=== PATIENT | female | born 1975 | race African-American/Black ===

== ENCOUNTER 2021-05-18 04:35 | Emergency (ER) | payer BC, OTHER ==
[~2021-05-18] VITALS: Ht 172.7 cm; Wt 155.9 kg
--- NOTE | 2021-05-18 04:38 | PHYS DOC ---
Past History Past Medical History: Hypertension, Other (TARIQ SYED MD) Past Surgical History: Cholecystectomy, , Tonsillectomy (TARIQ SYED MD) Alcohol Use: Occasionally Drug Use: None (TARIQ SYED MD) General Adult HPI: HPI: ".. I had a little bit of a scratchy throat when I went to bed.. but I woke up this morning.. and my face and lips swollen.." Patient is a 46 year old female who presents with above hx and complaints of a llergic reaction. Patient has obvious angioedema of her lips and tongue. Patient does take several meds. Patient does takes lisinopril for blood pressure. No other new foods, meds, or changes or other known exposures. Did recent take some Tessalon Perles for cough complaints. Patient normally follows with Dr. Alegre. (TARIQ SYED MD) Review of Systems: Review of Systems: Constitutional: Denies fever or chills Eyes: Denies change in visual acuity HENT: Complains of swollen lips, nasal congestion and sore throat Respiratory: Complains of some wheezing Cardiovascular: Denies chest pain or edema GI: Denies abdominal pain, nausea, vomiting, bloody stools or diarrhea : Denies dysuria Musculoskeletal: Denies back pain or joint pain Integument: Denies rash Neurologic: Denies headache, focal weakness or sensory changes Endocrine: Denies polyuria or polydipsia Lymphatic: Denies swollen glands Psychiatric: Patient anxious (TARIQ SYED MD) Family History: Family History: Noncontributory to presentation (TARIQ SYED MD) Current Medications: Current Meds: See nursing for home meds (TARIQ SYED MD) Allergies: Allergies: Allergies Coded Allergies Type Severity Reaction Last Updated Verified No Known Drug Allergies 08/06/14 No (TARIQ SYED MD) Physical Exam: PE: Constitutional: Moderate acute distress, non-toxic appearance. [] HENT: Normocephalic, atraumatic, bilateral external ears normal, oropharynx moist, no oral exudates, nose swollen turbinates clear rhinorrhea. Angioedema of lips and tongue Eyes: PERRLA, EOMI, conjunctiva normal, no discharge. Glasses Neck: Normal range of motion, no tenderness, supple, mild stridor. [] Cardiovascular: Tachycardia heart rate regular rhythm, no murmur [] Lungs & Thorax: Bilateral breath sounds equal apex few scattered wheezes on auscultation [] Abdomen: Bowel sounds decreased, soft, no tenderness, no masses, no pulsatile masses. Obese. Old surgery scars. Skin: Warm, dry, no erythema, no rash. [] Back: No tenderness, no CVA tenderness. [] Extremities: No tenderness, no cyanosis, no clubbing, ROM intact, ankle edema. [] Neurologic: Alert and oriented X 3, normal motor function, normal sensory function, no focal deficits noted. [] Psychologic: Affect anxious, judgement normal, mood normal. [] (TARIQ SYED MD) EKG: EKG: [] (TARIQ SYED MD) Radiology/Procedures: Radiology/Procedures: [][place] [address] IMAGING REPORT Signed PATIENT: PRAVEENA RAUSCH MACCOUNT: [id number] : 1975 LOCATION: ER AGE: 46 SEX: F EXAM STATUS: REG ER ORD. PHYSICIAN: TARIQ SYED MD REASON: angio edema , dyspnea PROCEDURE: PORTABLE CHEST 1V EXAM: CHEST 1 VIEW History: Dyspnea COMPARISON: 08/06/2014 TECHNIQUE: Single portable radiograph of the chest FINDINGS: The cardiac silhouette is unremarkable. The lungs are clear bilaterally. The costophrenic sulci are clear and well demarcated. IMPRESSION: No radiographic evidence of an acute cardiopulmonary process. Electronically signed by: Cecil Jarquin MD (05/18/2021 5:49 AM) [id number] DICTATED AND SIGNED BY: CECIL JARQUIN MD DATE: 05/18/21 0545 CC: TARIQ SYED MD; JULIÁN ALEGRE MD ~MTH0 0 (TARIQ SYED MD) Heart Score: C/O Chest Pain: N/A HEART Score for Chest Pain: HEART Score for Chest Pain Response (Comments) Value History Slighlty/Non-Suspicious 0 ECG Nonspecific Repolarizatio 1 Age < 45 0 Risk Factors 1 or 2 Risk Factors 1 Troponin < Normal Limit 0 Total 2 Risk Factors: Risk Factors: DM, Current or recent (<one month) smoker, HTN, HLP, family history of CAD, obesity. Risk Scores: Score 0 - 3: 2.5% MACE over next 6 weeks - Discharge Home Score 4 - 6: 20.3% MACE over next 6 weeks - Admit for Clinical Observation Score 7 - 10: 72.7% MACE over next 6 weeks - Early Invasive Strategies (TARIQ SYED MD) Course & Med Decision Making: Course & Med Decision Making Pertinent Labs and Imaging studies reviewed. (See chart for details) Pt. endorsed to Dr. Pruitt at shift change. Impression: 1. Allergic reaction 2. Angio Edema 3. Diabetes 45480 4. HTN [] (TARIQ SYED MD) Course & Med Decision Making Patient observed in emergency department for 4 hours. Offered admission for observation, patient states she does not feel like she has any airway issues that she has had a scratchy throat for the past 2 to 3 days, will be for her lip swelling this morning. Patient states she has had cold symptoms for like she had laryngitis. Patient and I discussed risks and benefits, return precautions. Patient states she feels comfortable to go home and is instructed to call EMS if she has any worsening symptoms or difficulty swallowing or breathing. (ALVIN PRUITT MD) Dragon Disclaimer: Dragon Disclaimer: This electronic medical record was generated, in whole or in part, using a voice recognition dictation system. (TARIQ SYED MD) Departure Departure: Impression: Primary Impression: Angio-edema Disposition: HOME / SELF CARE / HOMELESS Condition: STABLE Referrals: PCP,NO (PCP) Patient Instructions: Angioedema Dragon Disclaimer This chart was dictated in whole or in part using Voice Recognition software in a busy, high-work load, and often noisy Emergency Department environment. It may contain unintended and wholly unrecognized errors or omissions. (TARIQ SYED MD) Dragon Disclaimer This chart was dictated in whole or in part using Voice Recognition software in a busy, high-work load, and often noisy Emergency Department environment. It may contain unintended and wholly unrecognized errors or omissions. (TARIQ SYED MD) TARIQ SYED MD May 18, 2021 04:38 ALVIN PRUITT MD May 18, 2021 09:10
[2021-05-18] MEDS ORDERED: IPRATRPIUM/ALBUTEROL 0.5/2.5MG 3 ML NEBU. ONE (04:45)
[2021-05-18] MEDS ORDERED: FAMOTIDINE 20 MG/2 ML VIAL IVP ONE (05:00)
[2021-05-18] MEDS ORDERED: IPRATRPIUM/ALBUTEROL 0.5/2.5MG 3 ML NEBU. NEB ONE (05:00)
[2021-05-18] MEDS ORDERED: methylPREDNISolone SOD SUCC PF 125 MG/2 ML VIAL. IV ONE (05:00)
[2021-05-18] MEDS ORDERED: MAGNESIUM HYDROXIDE 2,400 MG/30 ML ORAL.SUSP. PO ONE (05:00)
[2021-05-18] MEDS ORDERED: diphenhydrAMINE 50 MG/ML VIAL IVP ONE (05:00)
[2021-05-18] MEDS ORDERED: IV RINGERS SOLUTION,LACTATED 1,000 ML IV SCH (05:00)
[2021-05-18 05:20] LABS: BASO # 0.1 x10^3/uL (0.0-0.2); BASO % 1 % (0-3); EOS # 0.4 x10^3/uL (0.0-0.7); EOS % 4 % (0-3); HEMOGLOBIN 12.3 g/dL (12.0-15.5); LYMPH # 3.6 x10^3/uL (1.0-4.8); LYMPH % 36 % (24-48); MEAN CORPUSCULAR HEMOGLOBIN 28 pg (25-35); MEAN CORPUSCULAR HGB CONC 33 g/dL (31-37); MEAN CORPUSCULAR VOLUME 84 fL (79-100); MONO # 0.7 x10^3/uL (0.0-1.1); MONO % 7 % (0-9); NEUT # 5.2 x10^3uL (1.8-7.7); NEUT % 51 % (31-73); PLATELET COUNT 342 x10^3/uL (140-400); RED BLOOD COUNT 4.41 x10^6/uL (3.50-5.40); RED CELL DISTRIBUTION WIDTH 14.1 % (11.5-14.5); WHITE BLOOD COUNT 10.1 x10^3/uL (4.0-11.0)
[2021-05-18 05:25] LABS: CALCIUM 9.2 mg/dL (8.5-10.1); CREATININE 0.8 mg/dL (0.6-1.0); GFR 94.3; POTASSIUM 3.8 mmol/L (3.5-5.1)
[2021-05-18 05:37] LABS: ALBUMIN 3.5 g/dL (3.4-5.0); DIRECT BILIRUBIN 0.1 mg/dL (0.0-0.2); MAGNESIUM 1.9 mg/dL (1.8-2.4); TOTAL BILIRUBIN 0.2 mg/dL (0.2-1.0); TOTAL PROTEIN 8.1 g/dL (6.4-8.2)
[2021-05-18 05:42] LABS: BACTERIA,URINE 0 /HPF (0-FEW); BILIRUBIN,URINE NEG (NEG); CLARITY,URINE CLEAR; COLOR,URINE YELLOW; GLUCOSE,URINE NEG (NEG); NITRITE,URINE NEG (NEG); RBC,URINE 0 /HPF (0-2); SQUAMOUS EPITHELIAL CELL,UR FEW /LPF; UROBILINOGEN,URINE 0.2 mg/dL (0.2 mg/dL); WBC,URINE RARE /HPF (0-4)
[2021-05-18 05:47] LABS: BARBITURATES NEG (NEG); BENZODIAZEPINES NEG (NEG); CANNABINOIDS NEG (NEG); COCAINE NEG (NEG); METHADONE NEG (NEG); OPIATES NEG (NEG); PHENCYCLIDINE NEG (NEG)
[2021-05-18 05:48] LABS: AMPHETAMINE/METHAMPHETAMINE NEG (NEG)
--- NOTE | 2021-05-18 05:51 | RAD ---
EXAM: CHEST 1 VIEW History: Dyspnea COMPARISON: 08/06/2014 TECHNIQUE: Single portable radiograph of the chest FINDINGS: The cardiac silhouette is unremarkable. The lungs are clear bilaterally. The costophrenic sulci are clear and well demarcated. IMPRESSION: No radiographic evidence of an acute cardiopulmonary process. Electronically signed by: Cecil Jarquin MD (05/18/2021 5:49 AM) [id number]
--- NOTE | 2021-05-18 06:37 | EKG ---
[address] [address] Test Date: 2021-05-18 Test Time: 04:59:11 Pat Name: PRAVEENA RAUSCH Department: Room: Gender: F [employer]: : 1975 Requested By: TARIQ SYED Order Number: [id number] Reading MD: Saeid Negrete MD Measurements Intervals [place] Rate: 113 P: 24 [place]: 146 QRS: -3 QRSD: 78 T: 4 QT: 338 QTc: 469 Interpretive Statements SINUS TACHYCARDIA Electronically Signed On 05-19-2021 8:50:19 CDT by Saeid Negrete MD
[2021-05-18 09:15] VITALS: BP 144/79
== END 2021-05-18 09:20 | disposition home or self-care (01) ==
LOC: ER 04:35
DX: T78.3XXA Angioneurotic edema, initial encounter (principal); E11.9 Type 2 diabetes mellitus without complications; I10 Essential (primary) hypertension; Z20.822 Contact with and (suspected) exposure to COVID-19
CPT/HCPCS: 36415; 71045; 80048; 80076; 80307; 81001; 81025; 82550; 83690; 83735; 83880; 84443; 84484; 85025; 85610; 85730; 87070; 87426; 87880; 93005; 94640; 96361; 96374; 96375; 99285; C9803; J1200; J2930; J3490; J7120; U0003